=== PATIENT | male | born 1985 | race Caucasian/White ===

== ENCOUNTER → 2017-08-22 | Outpatient (CLI) | payer OTHER ==
[~2017-08-22] MED LIST: GADOBUTROL 10 ML VIAL IVP ONE
== END ==
LOC: FIMAGING 16:03
PROVIDERS: ATTEND Orthopaedic Surgery Hand Surgery
DX: M89.8X4 Other specified disorders of bone, hand (principal); M24.132 Other articular cartilage disorders, left wrist
CPT/HCPCS: A9585